=== PATIENT | female | born 1935 | race Caucasian/White ===

== ENCOUNTER → 2017-02-04 | Outpatient (CLI) | payer MEDICARE, BC ==
[~2017-02-04] MED LIST: AMLO5TAB PO; ASPIRIN CHILDRE81 M2 PO; CALCIUM 600 PLU1 TAB PO; CENTRUM SILVER1 TAB PO; DORZOLAMIDE OP; EVISTA60 MG PO; GEMFIBROZIL600 MG PO; LIPITOR40 M1 PO; METFORMIN1000 MG PO; NEXIUM40 MG PO; TIMOLOL OP; TRAVATAN Z 2.52.5 ML OP; VITAMIN D1000 IU PO
--- NOTE | 2017-02-09 10:56 | RADIOLOGY REPORT PS360 ---
DIG MAMM-SCREEN DIOGO W/CAD CAD Screening COMPARISON: Digital mammograms 01/02/2015 and 01/17/2016 INDICATION: There is a history of breast cancer patient maternal grandmother diagnosed after menopause. TECHNIQUE: Standard CC and MLO images were obtained. R2 CAD reviewed. FINDINGS: Mild to moderate diffuse fibroglandular densities are seen in both breasts. Again noted are couple benign-appearing calcifications near the nipple right breast. There is no new or suspicious lesion in either breast and there are no suspicious microcalcifications. IMPRESSION: Stable exam with no suspicious lesion seen recommend yearly follow-up BI-RADS CATEGORY: Category 2 benign RECOMMENDED FOLLOWUP: 12M 12 MONTH FOLLOW-UP (A letter has been sent to the patient regarding results of the study.)
== END ==
LOC: RAD 10:44
DX: Z12.31 Encounter for screening mammogram for malignant neoplasm of breast (principal)
CPT/HCPCS: G0202

== ENCOUNTER 2017-03-07 10:30 | Emergency (ER) | payer MEDICARE, BC ==
[~2017-03-07] VITALS: Ht 166.4 cm; Wt 62.1 kg
--- OUTSIDE RECORDS SUMMARY | 2017-03-07 10:39 | External Medical Summary Rpt ---
Author Author , Organization [employer] Address Unknown Phone Unavailable Purpose Continuity of Care Document - through 2016
--- OUTSIDE RECORDS SUMMARY | 2017-03-07 10:39 | External Medical Summary Rpt ---
Author Author BAI[employer] Heard, [employer] Organization [employer] Address Unknown Phone Unavailable
--- OUTSIDE RECORDS SUMMARY | 2017-03-07 10:39 | External Medical Summary Rpt ---
Demographics Preferred Language Citizen Of [place] Marital Status Unknown Congregational Affiliation Unknown Race Unknown Ethnic Group Unknown Author Author , Organization [employer] Address Unknown Phone Unavailable Purpose Continuity of Care Document - through 2016 Immunization No patient found.
--- OUTSIDE RECORDS SUMMARY | 2017-03-07 10:39 | External Medical Summary Rpt ---
Author Author [employer] Organization [employer] Address Unknown Phone Unavailable Purpose Continuity of Care Document - through 2016
--- OUTSIDE RECORDS SUMMARY | 2017-03-07 10:39 | External Medical Summary Rpt ---
Demographics Preferred Language [place] Marital Status Unknown Pentecostal Affiliation Unknown Race Unknown Ethnic Group Unknown Author Author , Organization [employer] Address Unknown Phone Unavailable Purpose Continuity of Care Document - through 2016 Immunization No patient found.
[2017-03-07 11:49] LABS: LYMPH # 0.9 K/mm3 (0.7-4.5); LYMPH % 11.7 % (10-50.0)
--- NOTE | 2017-03-07 11:55 | Emergency Room Report ---
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 PT ADVISES THAT SHE HAD A PIECE OF SKIN COME OFF OF HER VAGINA AND HAS BEEN USING A BETAMETHASONE DIPROPIONATE LOTION PRESCRIBED, BUT STATES THAT THE AREA IS NOW SORE AND BURNING AND THE BURNING EXTENDS DOWN BOTH LEGS ALL THE WAY TO HER FEET. UPON FURTHER EXAM, PT REPORTS THAT SHE HAS BEEN EXPERIENCING DIZZINESS, CONFUSION, OCCASSIONAL LEG NUMBNESS, AND FEELING IF SHE IS GOING TO PASS OUT. 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 N Clinical Suspician of Infection? N Mental Status: 1 - Regular (Normal Baseline) Sepsis Risk:Low Sepsis Risk Have you (or family members/close friends) recently traveled outside the [place]? N If Yes, where/when: Have you had exposure to infectious disease within the past month? N TB? Other? Specify: Source patient, RN notes reviewed, family, old records Exam Limitations no limitations Comment pt with not feeling well with possible ext vaginal changes but no gross bleeding - pt with no fever or fall and no syncope and no chest pain -pt denied any abd pain Cardiac Chest Pain Chest pain indicative of cardiac No Timing/Duration this afternoon Severity moderate ALLERGIES Coded Allergies: Sulfa (Sulfonamide Antibiotics) (Mild, 03/07/17) amoxicillin (Mild, 03/07/17) Home Medications Reported Medications Amlodipine Besylate (Amlodipine) 5 MG PO DAILY Travoprost (Travatan Z 2.5 Ml) 1 DROP OP DAILY LEVOBUNOLOL HCL (Cosopt Opth Teri; 5ML Bottle) 1 DROP OP BID Aspirin (Children's Aspirin) 81 MG PO DAILY CALCIUM CARBONATE/VITAMIN D3 (Calcium 600 + Vit D3 Tablet) 1 TAB PO DAILY MULTIVIT,THER IRON,CA,FA & MIN (Sm Therapeutic M Tablet) 1 TAB PO DAILY CHOLECALCIFEROL (VITAMIN D3) (Vitamin D3) 1,000 IUNITS PO DAILY METFORMIN HCL (Metformin) 1,000 MG PO DAILY Atorvastatin Calcium (Lipitor 40MG) 40 MG PO QHS Esomeprazole Magnesium (Nexium 40MG Cap) 40 MG PO DAILY Gemfibrozil (GEMFIBROZIL 600MG) 600 MG PO BID RALOXIFENE HCL (Evista) 60 MG PO DAILY History Medical History General CAD? No Angina: No MO: No Hypertension? Yes Hyperlipidemia? Yes CHF? No DVT? No PE? No COPD? No Asthma? No Anemia? No GERD? No Gastric ulcers? No GI Bleed? No Hernia? No Thyroid Problems? No Hypothyroidism? No CVA? No Seizures? No Diabetes? Yes Insulin Dependent: No Insulin Pump: No Home FSBS? No Renal Insuffiency? No End Stage Renal Disease? No UTI? Yes Stones? Yes BPH? No GB Disease: No Nephritic Syndrome? No Asplenia? No Hepatitis? No Sickle Cell Disease? No Arthritis? No Migraines? No Cataracts? Yes Glaucoma? Yes MRSA? No HIV? No TB? No Anxiety? No Depression? No Cancer? No More? No Immunization Hx DT/Tetanus > 10 Years Ago Flu Refused Pneumonia Refuses Surgical Hx Previous Surgery?Y L BREAST BIOPSY R EYE PARTIAL THYROIDECTOMY SINUS SX- POLYP REMOVED Family History Family Hx Diabetes Yes CAD Yes Hypertension Yes Hyperlipidemia Yes Cancer Yes TB No Social History Smoking Hx Smoker: Former Smoker Tobacco: Yes Type Cigarettes Alcohol Alcohol: No Drugs none Review of Systems All Other Systems Reviewed and Negative Constitutional denies fever Eyes denies drainage ENT denies: ear pain, epistaxis, throat pain. Respiratory denies cough, denies shortness of breath, denies wheezing Cardiovascular denies chest pain, denies palpitations, denies syncope Gastrointestinal denies abdominal pain, denies diarrhea, denies vomiting Genitourinary denies: frequency, hesitancy, hematuria, pain. Musculoskeletal denies back pain, denies joint pain, denies joint swelling, denies neck pain Skin denies rash Psychiatric/Neurological see HPI, denies headache, denies seizure, weakness Physical Exam Vital Signs Vital Signs Date Time Temp Pulse Resp B/P Pulse O2 O2 Flow FiO2 Ox Delivery Rate 03/07 1122 98.2 75 18 100 / 1045 98.2 75 18 100 - WBC >12,000 or <4,000 or 10% bands? 2 or more SIRS Criteria Met? B/P:143/ MAP:93 Creatinine >2.0? UA output<0.5ml/kg/hr for 2 hrs? Platelet count >100,000? Lactate >2.0mmol/1? INR >1.2 or PTT > than 60 sec? Evidence of Organ Dysfunction? Provider documented clinical suspician of infection? N Sepsis Criteria Count: 0 Sepsis Risk: Low Sepsis Risk General Appearance no apparent distress Eye Exam - bilateral eye PERRL, bilateral eye EOMI Ear, Nose, Throat normal ENT inspection Neck supple, no bruits Respiratory Status No: respiratory distress. Lung Sounds bilateral: lungs clear. Cardiovascular regular rate/rhythm, no murmur Peripheral Pulses Pulses normal Yes Gastrointestinal soft Extremities normal inspection Strength 4 Upper Ext (L), 4 Upper Ext (R), 4 Lower Ext (L), 4 Lower Ext (R) Pelvic possible local skin changes rt ext labia Neurologic alert, technology education teacher II-XII nml as tested, no motor/sensory deficits Glascow Coma Scale Glascow Coma Scale Response Value EYE response: 4 Spontaneously 4 MOTOR response: 6 OBEYS 6 VERBAL response: 5 Oriented & Converses 5 Total 15 Reflexes Reflexes normal Yes Mental status normal mood/affect Skin intact Comments remembers 3 /3 at 5 minutes Medical Decision Making LABS/Meds/Orders Pt receiving controlled substance in ED? No Results/Orders Laboratory Tests 03/07/17 1220: Urine Color YELLOW, Urine Appearance CLEAR, Urine pH 6.5, Ur Specific [place] 1.010, Urine Protein NEGATIVE, Urine Ketones NEGATIVE, Urine Blood NEGATIVE, Urine Nitrate NEGATIVE, Urine Bilirubin NEGATIVE, Urine Urobilinogen 0.2, Ur Leukocyte Esterase NEGATIVE, Urine WBC OCC, Ur Squamous Epith Cells 3-5, Urine Bacteria 1+, Urine Mucus 1+, Urine Glucose NEGATIVE 03/07/17 1134: Sodium 139, Potassium 4.1, Chloride 103, Carbon Dioxide 28, BUN 9, Creatinine 0.7, Estimated Creat Clear 60, Estimated GFR (MDRD) 80, Glucose 147 H, Calcium 9.1, Total Bilirubin 0.6, AST 15, ALT 24, Alkaline Phosphatase 65, Creatine Kinase 70, CK-MB (CK-2) Rel Index 0.9, CK and CKMB Interp 0.6, Troponin I < 0.02 , Total Protein 7.1, Albumin 3.7, Globulin 3.4 H, Albumin/Globulin Ratio 1.1, WBC 7.8, RBC 4.33, Hgb 12.4, Hct 37.4, MCV 86.3, RDW 13.5, Plt Count 261, MPV 6.6 L, Gran % 83.2 H, Gran # 6.5, Lymphocytes % 11.7, Monocytes % 4.3, Eosinophils % 0.5, Basophils % 0.4, Lymphocytes # 0.9, Monocytes # 0.3, Eosinophils # 0.0, Basophils # 0.0, PUBS MCHC 33.3, MCH 28.7 Current Medication Orders Sig/Wero Start time Last Medication Dose Route Stop Time Status Admin Sodium Chloride 10 ML PRN PRN 03/07 1130 AC IV 03/08 1124 Orders Procedure Date/time Status DIET-NOTHING BY MOUTH 03/07 D Active THYROID PANEL 2 (WITH TSH) 03/07 1308 Active THYROXINE (T4) 03/[address] ABD/PELVIS REQ 03/07 1156 Complete CHEST-AP VIEW ONLY 03/07 1148 Active 12 LEAD EKG-BESSON (INITIAL) 03/07 1125 Active ELECTROCARDIOGRAM REQUEST 03/[address] HEAD REQ 03/07 1125 Complete IV SALINE LOCK 03/07 1125 Active URINALYSIS/COMPLETE 03/07 1125 Complete CBC WITH AUTO DIFF 03/07 1125 Complete CARDIAC ENZYMES 03/07 1125 Complete CHEM 12 PROFILE 03/07 1125 Complete CM/EKG CM/tattoo designer Rhythm Normal Sinus Rhythm EKG non-spec. ST/Twave chgs Departure Departure Time of Disposition 1303 Disposition DC Home or Self Care(routine) Clinical Impression Primary Impression: Vaginal lesion Secondary Impressions: Fatigue Qualifiers: Fatigue type: unspecified Qualified Code: R53.83 - Other fatigue Condition STABLE Referrals Jose Rede MD (Family) Patient Instructions DI for Fatigue Additional Instructions see dr benitez and dr reed for follow up Discharge Counseling Counseled pt/family regarding diagnosis, test results ED Critical Care Critical Care No at 1312
[2017-03-07 12:05] LABS: BUN 9 mg/dL (7-18)
[2017-03-07 12:07] LABS: GFR (ESTIMATED) 80 ML/MIN (59-)
[2017-03-07 12:11] LABS: HEMOGLOBIN 12.4 g/dL (12.2-16.2)
--- NOTE | 2017-03-07 12:19 | RADIOLOGY REPORT PS360 ---
CT HEAD W/O CONTRAST COMPARISON: None HISTORY: Feeling lightheaded TECHNIQUE: Multiple axial scans obtained from base skull to the vertex and were performed without IV contrast FINDINGS: The base of skull appears normal, the mastoids are clear. The basilar cisterns are prominent. The ventricular system is normal for age. The sylvian fissures and cortical sulci are mildly prominent. There are periventricular hypodensities bilaterally consistent with chronic ischemic white matter changes. There is no bleed and there are no extra-axial fluid collections. The bony calvarium appears intact showing evidence of hyperostosis frontalis interna. IMPRESSION: Findings of age-appropriate cortical atrophy along with moderate chronic ischemic white matter changes, no definite acute intracranial pathology noted.
[2017-03-07 12:25] LABS: URINE BILIRUBIN - DIPSTICK NEGATIVE (NEG); URINE BLOOD NEGATIVE (NEG)
--- NOTE | 2017-03-07 12:30 | RADIOLOGY REPORT PS360 ---
CT ABD PELVIS W/O CONTRAST COMPARISON: 80 scan abdomen pelvis 09/01/2014 HISTORY: Feeling lightheaded, vaginal pain and urinary frequency TECHNIQUE: Altered axial scans obtained from the hemidiaphragms the pelvic floor and were performed without IV or oral contrast. Sagittal and coronal reformatted images were evaluated as well. FINDINGS: Scans through the lower chest show generalized cardio megaly. There is a [id number] sized hiatal hernia with prominent wall thickening of the distal esophagus probably secondary to chronic reflux esophagitis. The liver spleen and pancreas appear grossly normal. There has been a previous cholecystectomy. The stomach is normal. Both adrenal glands appear normal. The kidneys are normal in size and there are no calculi and is no obstructive uropathy of either kidney. There is a small benign-appearing cortical cyst right kidney. Small bowel appears normal. There is prominent arteriosclerotic calcification of the aorta but there is no aneurysm. The appendix appears normal. There is moderate amount stool in ascending colon and hepatic flexure. There is moderate diffuse diverticulosis of the lower descending and sigmoid colon without evidence of diverticulitis. The urinary bladder is partially decompressed but otherwise appears normal. The uterus is somewhat small and atrophic. Is no free fluid in the pelvis. There is generalized osteopenia of the lower thoracic and lumbar spine. IMPRESSION: 1. Moderate-sized hiatal hernia with prominent wall thickening of the lower esophagus 2. Moderate diffuse diverticulosis of the lower descending and sigmoid colon without diverticulitis
[2017-03-07 13:12] VITALS: BP 143/68
--- NOTE | 2017-03-07 13:17 | RADIOLOGY REPORT PS360 ---
CHEST-AP VIEW ONLY COMPARISON: PA and lateral chest 09/02/2014 HISTORY: Dizziness TECHNIQUE: PA and lateral chest FINDINGS: The lung coates are fairly well-expanded and appear clear of infiltrate. There is prominent aortic tortuosity but no cardiomegaly. There is no pleural fluid. IMPRESSION: Nonacute chest findings
[2017-03-07 13:32] LABS: FREE THYROXIN INDEX 4.8 ug/dl (5.93-13.13)
== END 2017-03-07 13:13 | disposition home or self-care (01) ==
LOC: UTC 10:30 → ER 10:37 → UTC 10:37 → ER 13:13
PROVIDERS: Emergency Medicine
DX: N81.5 Vaginal enterocele (principal); R42 Dizziness and giddiness; I10 Essential (primary) hypertension; Z87.891 Personal history of nicotine dependence; E11.9 Type 2 diabetes mellitus without complications

== ENCOUNTER → 2017-07-28 | Outpatient (CLI) | payer MEDICARE, BC ==
--- NOTE | 2017-07-28 16:23 | RADIOLOGY REPORT PS360 ---
HAND-RT 3 VIEWS HISTORY: RT HAND PAIN ORDERING PHYSICIAN: Debi Albrecht APRN PATIENT AGE: 82 years COMPARISON: None FINDINGS: There is nondisplaced fracture involving the base of the fifth metacarpal. No other fractures are evident. IMPRESSION: Nondisplaced transverse fracture base of fifth metacarpal
--- NOTE | 2017-07-28 16:31 | RADIOLOGY REPORT PS360 ---
WRIST-3 VIEWS-RT HISTORY: RT HAND PAIN ORDERING PHYSICIAN: Debi Albrecht APRN PATIENT AGE: 82 years COMPARISON: None FINDINGS: Nondisplaced fracture is present base of the fifth metacarpal. On the AP view of the wrist, there is an oblique lucency involving the radial styloid area not readily apparent on the additional views. This could be related to prominent trabeculation or a nondisplaced fracture. Follow-up study in 7-[address] scan with coronal reformats may be of further value to determine if this is a true fracture. IMPRESSION: 1. Nondisplaced fracture base of fifth metacarpal. 2. Possible nondisplaced fracture at the base of the radial styloid process. Please correlate with clinical findings and appropriate radiographic follow-up
== END ==
LOC: RAD 15:21
DX: M79.641 Pain in right hand (principal)

== ENCOUNTER → 2017-08-27 | Outpatient (CLI) | payer MEDICARE, BC ==
--- NOTE | 2017-08-27 11:13 | RADIOLOGY REPORT PS360 ---
HAND-RT 3 VIEWS COMPARISON: Right hand 07/28/2017 HISTORY: Follow-up fracture TECHNIQUE: AP lateral and oblique views through the posterior splint FINDINGS: There is a healing fracture at the base of the fifth metacarpal, alignment is satisfactory. Remaining metacarpals appear intact and all the phalanges appear intact. 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 There is generalized osteopenia. IMPRESSION: Healing fracture base of fifth metacarpal
== END ==
LOC: RAD 10:38
DX: S62.306A Unspecified fracture of fifth metacarpal bone, right hand, initial encounter for closed fracture (principal)